=== PATIENT | male | born 1980 | race African-American/Black ===

== ENCOUNTER 2023-11-15 16:07 | Emergency (ER) | payer OTHER ==
[~2023-11-15] VITALS: Ht 180.3 cm; Wt 89.0 kg
[2023-11-15] MEDS ORDERED: LIDOcaine HCl 1% (Local Anesth.) 20 ML VIAL STI ONE (16:15)
[2023-11-15] MEDS ORDERED: Diph, Acellular Pertussis, Tet 0.5 ML/VIAL (Tdap) SDV IM ONE (16:45)
[2023-11-15] MEDS ORDERED: KEFLEX500 MG PO (16:49)
[2023-11-15 17:04] VITALS: BP 136/88
== END 2023-11-15 17:15 | DRG 563 ==
LOC: ED 16:07
PROC: 0RSXXZZ Reposition Left Finger Phalangeal Joint, External Approach (ICD-10-PCS; principal; 2023-11-15)
PROC: 0HQGXZZ Repair Left Hand Skin, External Approach (ICD-10-PCS; 2023-11-15)
DX: S63.291A Dislocation of distal interphalangeal joint of left index finger, initial encounter (principal); S61.211A Laceration without foreign body of left index finger without damage to nail, initial encounter; X58.XXXA Exposure to other specified factors, initial encounter; Y93.61 Activity, american tackle football; Y92.149 Unspecified place in prison as the place of occurrence of the external cause